=== PATIENT | female | born 1965 | race Caucasian/White ===

== ENCOUNTER 2016-08-29 09:54 | Emergency (ER) | payer OTHER ==
[~2016-08-29] VITALS: Ht 167.6 cm; Wt 81.8 kg
[2016-08-29 10:00] VITALS: BP 128/92; PULSE 57; RESP 20; O2SAT 100
--- NOTE | 2016-08-29 10:30 | ED.REPORT ---
HPI-Chest Pain 40 and Over Date of Service Aug 29, 2016 ED Provider: Dr. Madden Pt is a 51 y/o female presenting to the ED c/o substernal CP with radiation to the back onset 2 days ago. She c/o associated nausea and vomiting for 12 hours , pleuritic chest pain. Her pain is significantly exacerbated by ROM and deep breathing. She denies fever, chills, cough, SOB, abdominal pain. She states her left breast implant has been ruptured for 8 years causing some chronic shoulder pain and she is worried this may be causing her pain. She incidentally notes intermittent constipation for weeks. Nursing Notes Stated Complaint: CHEST PAIN Chief Complaint: Chest Pain-Non Cardiac Nature Nursing Notes Reviewed: Yes Allergies: Coded Allergies: Sulfa (Sulfonamide Antibiotics) (Verified Allergy, Mild, 08/29/16) erythromycin base (Verified Allergy, Mild, 08/29/16) General Time Seen by MD: 10:30 Chief Complaint Chest pain Hx Obtained From: Patient Arrived By: Walk-in Sudden in Onset?: No Onset Occurred: 2 days ago Symptom Duration: Since onset Location: : Substernal Quality: Painful Radiation: : Back Migration/Movement: Reports: None Severity: Current: Moderate Severity: Maximum: Moderate Past Medical History Past Medical History None reported Past Surgical History Breast implants Smoking History Unknown if Ever Smoker Ambulatory Status Independent Review of Systems Constitutional: Denies: Chills, Fever Respiratory: Reports: Pleuritic pain, Denies: Non-productive cough, Shortness of breath Cardiovascular: Reports: Chest pain, Denies: Dyspnea on exertion GI: Reports: Constipation, Nausea, Vomiting, Denies: Abdominal pain Complete sys rev & neg: except as marked. Physical Exam Initial Vital Signs Vital Signs (First) Date Time Temp Pulse Resp B/P Pulse Ox O2 Delivery O2 Flow Rate FiO2 08/29/16 10:00 36.6 57 20 128/92 100 Room Air Initial VS: Reviewed, Vital signs normal Head / Eyes: Atraumatic, Normocephalic, PERRL ENT: Mucous membranes moist, Conjunctiva normal, No scleral icterus Neck: Supple, Full range of motion Extremities: Vascular intact, Neuro intact, No swelling, No tenderness Skin: Warm, Dry, No cyanosis Neurologic: Alert, Oriented, Nonfocal Psychiatric: Mood/affect normal, Behavior normal, Normal thought content General/Constitutional: Awake, Alert, Cooperative, Not toxic appearing Distress / Hydration: Positive: Distress mild Respiratory / Chest: Atraumatic, Breath sounds NL, Breath sounds = bilat, No respiratory distress, No rales, No rhonchi, No wheezing, No retractions, No stridor, No chest wall deformity, No crepitus Right breast is much larger than the left and is very tense Severe midsternal chest tenderness to very light touch Cardiovascular: Heart rate NL, Regular rhythm, Heart sounds NL, No gallop, No murmurs, No rubs, Cap refill not delayed, Peripheral circulation NL Abdomen: Atraumatic, Soft, Non-tender, No guarding, No rebound, No palpable mass Interpretation & Diagnostics Lab Results Interpretation Result Diagram: 08/29/16 1117 08/29/16 1117 Test 08/29/16 11:17 08/29/16 11:43 White Blood Count 5.3th/mm3 (3.8-10.1) Red Blood Count 4.35mil/mm3 (3.90-5.20) Hemoglobin 14.0g/dL (12.0-15.6) Hematocrit 40.3% (35.0-46.0) Mean Corpuscular Volume 92.6fL (81-100) Mean Corpuscular Hemoglobin 32.2pg (27.0-35.0) Mean Corpuscular Hemoglobin Concent 34.7% (32.0-37.0) Red Cell Distribution Width 12.6% (12.3-15.4) Platelet Count 247bil/L (150-400) Neutrophils (%) (Auto) 82.7% (40-74) Lymphocytes (%) (Auto) 12.2% (14-46) Monocytes (%) (Auto) 4.7% (4-12) Eosinophils (%) (Auto) 0.2% (0-5) Basophils (%) (Auto) 0% (0-3) Sodium Level 139mEq/L (134-144) Potassium Level 3.6mEq/L (3.5-5.2) Chloride Level 100mEq/L (97-108) Carbon Dioxide Level 19mmol/L (18-29) Blood Urea Nitrogen 14mg/dL (6-24) Creatinine 0.90mg/dL (0.57-1.00) Estimat Glomerular Filtration Rate 94mL/min (>59) Glucose Level 209mg/dL (60-99) Calcium Level 9.6mg/dL (8.5-10.1) Magnesium Level 1.9mg/dL (1.6-2.6) Total Bilirubin 0.7mg/dL (0.0-1.2) Aspartate Amino Transf (AST/SGOT) 18U/L (0-50) Alanine Aminotransferase (ALT/SGPT) 15U/L (0-32) Alkaline Phosphatase 75U/L (25-150) Troponin T < 0.010ug/L (0.0-0.011) Total Protein 7.7g/dL (6.4-8.4) Albumin 4.6g/dL (3.4-5.0) Hold Sherman Top Tube Received (Received) D-Dimer < 0.50mg/L FEU (<0.50) ECG Interpretation ECG Interpretation: Sinus bradycardia rate 47 Nonspecific T abnormalities, anterior leads Time: 10:48 Interpreted by: ED physician Normal ECG Interpretation: No acute ischemic changes X-Ray Chest Interpretation Chest Xray Interpretation: IMPRESSION: No acute cardiopulmonary disease. Dictated by: Jamie Carter M.D. on 08/29/2016 at 11:12 Approved by: Jamie Carter M.D. on 08/29/2016 at 11:13 View: Portable, 1 view Interpretation / Wet Read by: Interpret - Radiologist Re-Eval/Medical Decision Med Decision/Clinical Course [facility]CT [facility] REP query: 90 10 mg tabs of amphetamines every month for 1 year Time of Eval: 13:35 Re-Evaluation/Progress Note: Pt rechecked. Resting comfortably no signs of distress. Discussed results. Informed pt of plan for treatment. Pt understands and agrees with plan for treatment. F/U instructions and RTER warnings given. All questions addressed. Consultation : Referral / Consult Name: Jatinder Davenport DO Consulted With: Primary care physician Call Returned at: 13:52 Physiotherapy Assistant: Will see in office Counseled Regarding: Diagnosis, Lab results, Need for follow-up, When/why to return to ED Discharge & Departure Primary Impression: Chest pain Chest pain type: unspecified Qualified Code: R07.9 - Chest pain, unspecified Additional Impression: Constipation Constipation type: unspecified constipation type Qualified Code: K59.00 - Constipation, unspecified Disposition: Home Discharge Condition All VS Reviewed: Yes Condition: Stable Patient Instructions: Chest Pain (ED) Additional Instructions: The cause of your chest pain is unclear at this moment but it does not appear to be related to your heart. I suspect your pain is musculoskeletal. Your labs (including marker for heart damage), EKG, and chest x-ray were normal. Your physical exam is reassuring. Take magnesium citrate as needed for constipation. Return to the emergency department for increased chest pain, profuse sweating, uncontrolled vomiting, high fever, trouble breathing, or for other concerning symptoms. We have made you a follow-up appointment: Check in 8:30 a.m. tomorrow 08/30/16 for a 8:[address] Davenport. Referrals: Jatinder Davenport Attestation Portions of this note were transcribed by Eduardo Thompson. I, Dr. Madden, personally performed the history, physical exam and medical decision-making; I reviewed and confirmed the accuracy of the information in the transcribed note. Signed by Halley Xiao, 08/29/16 - 1100 copies to: Jatinder Davenport Kirk H MD Aug 29, 2016 10:30 EDUARDO THOMPSON Aug 29, 2016 10:48
[2016-08-29] MEDS ORDERED: Ondansetron 2 mg/mL 2 mL Inj IVPUSH PRN (11:00)
[2016-08-29] MEDS ORDERED: HYDROmorphone 1 mg/mL Inj IVPUSH PRN (11:00)
--- NOTE | 2016-08-29 11:14 | DRSVH ---
PROCEDURE: X-RAY CHEST ONE VIEW, PORTABLE ([id number]) INDICATIONS: CHEST PAIN TECHNIQUE: One view of the chest was acquired. COMPARISON: [facility], , CHEST 2VW, 06/28/2014, 10:56. FINDINGS: Surgical changes and devices: None. Lungs and pleura: No pleural effusions or pneumothorax. Lungs are clear. Mediastinum: Mediastinal contours appear normal. Heart size is normal. Bones and chest wall: No suspicious bony lesions. Overlying soft tissues appear unremarkable. IMPRESSION: No acute cardiopulmonary disease. Dictated by: Jamie Carter M.D. on 08/29/2016 at 11:12 Approved by: Jamie Carter M.D. on 08/29/2016 at 11:13
[2016-08-29 11:35] LABS: BASOPHILS % (AUTO) 0 % (0-3); EOSINOPHILS % (AUTO) 0.2 % (0-5); MONOCYTES % (AUTO) 4.7 % (4-12); Mean Corpuscular Hemoglobin 32.2 pg (27.0-35.0); Mean Corpuscular Volume 92.6 fL (81-100); NEUTROPHILS % (AUTO) 82.7 % (40-74); Platelet Count 247 bil/L (150-400)
[2016-08-29 12:17] LABS: Magnesium 1.9 mg/dL (1.6-2.6); TROPONIN T < 0.010 ug/L (0.0-0.011)
[2016-08-29] MEDS ORDERED: HYDR-4003 PO (13:54)
[2016-08-29] MEDS ORDERED: ONDA4TAB9 PO (13:54)
[2016-08-29 14:02] VITALS: BP 155/100; RESP 18; O2SAT 95
== END 2016-08-29 14:03 | disposition home or self-care (01) ==
LOC: EDBD 09:54 → EDUNIT# 09:54 → SED 09:54
DX: R07.9 Chest pain, unspecified (principal); K59.00 Constipation, unspecified; Z98.82 Breast implant status; Z88.1 Allergy status to other antibiotic agents; Z88.2 Allergy status to sulfonamides
CPT/HCPCS: 71010; 80053; 83735; 84484; 85025; 85378; 93005; 96374; 96375; 99285; J1170; J1885; J2405